=== PATIENT | female | born 1950 | race Caucasian/White ===

== ENCOUNTER 2016-12-19 21:56 | Inpatient (IN) | payer MEDICAID, OTHER ==
[~2016-12-19] VITALS: Ht 152.4 cm; Wt 49.8 kg
[2016-12-19] MEDS ORDERED: ATOR20TA38 PO (22:35)
[2016-12-19] MEDS ORDERED: ASPI-664 PO (22:35)
[2016-12-19] MEDS ORDERED: LOSA50TA6 PO (22:36)
[2016-12-19] MEDS ORDERED: GLIP5TAB13 PO (22:36)
[2016-12-19] MEDS ORDERED: METO5TAB58 PO (22:37)
[2016-12-19] MEDS ORDERED: HYDR-3670 PO (22:37)
[2016-12-19] MEDS ORDERED: ISON300T72 PO (22:38)
[2016-12-19] MEDS ORDERED: METO50TA16 PO (22:38)
[2016-12-19] MEDS ORDERED: LABE300T PO (22:40)
[2016-12-19] MEDS ORDERED: SEVE800T10 PO (22:40)
[2016-12-19] MEDS ORDERED: NICARDipine HCL 30 MG CAPSULE PO ONE (23:00)
--- NOTE | 2016-12-19 23:00 | ERA ---
ER Documentation Chief Complaint Date/Time DATE: 12/19/16 TIME: 22:57 Chief Complaint stopped dialysis after 2.5/4 hrs due to ALOC; a&o x1-2; no neuro defficits HPI This is a 66-year-old who is in dialysis prior to arrival and her dialysis was stopped early because level of consciousness. Patient was suddenly oriented 1 to but had no specific complaints of headache chest pain shortness of breath or abdominal pain. Patient was found to be hypertensive at 215/115 dialysis. Here the patient says she has no headache or any physical complaints but she is obviously confused and oriented 1. ROS All systems reviewed and are negative except as per history of present illness. Medications Home Meds Reported Medications Sevelamer Hcl* (Renagel*) 800 Mg Tablet, 800 MG PO WITH MEALS, TAB 12/19/16 Labetalol Hcl* (Labetalol Hcl*) 300 Mg Tablet, 300 MG PO BID, TAB 12/19/16 Isoniazid* (Isoniazid*) 300 Mg Tablet, 300 MG PO DAILY, TAB 12/19/16 Metoprolol Succinate* (Toprol XL*) 50 Mg Tab.er.24h, 50 MG PO DAILY, #30 TAB 12/19/16 Hydralazine Hcl* (Hydralazine Hcl*) 10 Mg Tablet, 10 MG PO Q8, #90 TAB 12/19/16 Metoclopramide* (Reglan*) 5 Mg Tablet, 5 MG PO AC MEALS Y for PRN, TAB 12/19/16 Glipizide* (Glipizide*) 5 Mg Tablet, 5 MG PO DAILY, TAB 12/19/16 Losartan Potassium* (Losartan Potassium*) 50 Mg Tablet, 50 MG PO DAILY, TAB 12/19/16 Atorvastatin Calcium* (Atorvastatin Calcium*) 20 Mg Tablet, 20 MG PO DAILY, #30 TAB 12/19/16 Aspirin* (Aspirin* EC) 81 Mg Tablet.dr, 81 MG PO DAILY, TAB 12/19/16 Allergies Allergies: Coded Allergies: Penicillins (Verified Allergy, Unknown, 12/19/16) PMhx/Soc History of Surgery: Yes (pauly cath right upper chest) Hx Cardiac Disorders: Yes (htn, dm) Hx Alcohol Use: No Hx Substance Use: No Hx Tobacco Use: No Smoking Status: Never smoker FmHx Family History: No coronary disease Physical Exam Vitals Vital Signs Date Time Temp Pulse Resp B/P Pulse Ox O2 Delivery O2 Flow Rate FiO2 12/20/16 00:26 81 16 128/51 98 Nasal Cannula 2.0 12/19/16 23:31 82 16 158/61 98 Nasal Cannula 2.0 12/19/16 22:47 Nasal Cannula 2 12/19/16 22:47 79 16 217/115 95 Room Air 2.0 Nasal Cannula 12/19/16 22:05 97.6 79 17 231/99 96 Physical Exam Const: Well-developed, well-nourished Head: Atraumatic, normocephalic Eyes: Normal Conjunctiva, PERRLA, EOMI, normal sclera, no nystagmus ENT: Normal External Ears, Nose and Mouth, moist mucus membranes. Neck: Full range of motion. No meningismus, no lymphadenopathy. Resp: Clear to auscultation bilaterally, no wheezing, rhonchi, rales Cardio: Regular rate and rhythm, no murmurs, S1 S2 present Abd: Soft, non tender x 4, non distended. Normal bowel sounds, no guarding or rebound, no pulsitile abdominal masses or bruits Skin: No petechiae or rashes, no ecchymosis , no maculopapular rash Back: No midline or flank tenderness Ext: No cyanosis, or edema, FROM x 4, normal inspection, neurovascularly intact x 4 Neur: Awake and alert, oriented 1 , STR 5/5 x 4, sensation intact x 4, no focal findings, cerebellum intact Psych: Normal Mood and Affect Result Diagram: 12/19/16222912/19/162229 Results 24 hrs Laboratory Tests Test 12/19/16 22:16 12/19/16 22:30 Bedside Glucose 118mg/dL White Blood Count 7.010^3/ul Red Blood Count 2.9810^6/ul Hemoglobin 9.1g/dl Hematocrit 26.0% Mean Corpuscular Volume 87.2fl Mean Corpuscular Hemoglobin 30.5pg Mean Corpuscular Hemoglobin Concent 35.0g/dl Red Cell Distribution Width 14.9% Platelet Count 28177^3/UL Mean Platelet Volume 9.9fl Neutrophils % 78.3% Lymphocytes % 12.4% Monocytes % 5.6% Eosinophils % 2.3% Basophils % 1.0% Nucleated Red Blood Cells % 0.0/100WBC Neutrophils # 5.510^3/ul Lymphocytes # 0.910^3/ul Monocytes # 0.410^3/ul Eosinophils # 0.210^3/ul Basophils # 0.110^3/ul Nucleated Red Blood Cells # 0.010^3/ul Prothrombin Time 13.5Sec Prothrombin Time Ratio 1.1 INR International Normalized Ratio 1.03 Activated Partial Thromboplast Time 38.7Sec Sodium Level 135mmol/L Potassium Level 3.9mmol/L Chloride Level 96mmol/L Carbon Dioxide Level 29mmol/L Anion Gap 14 Blood Urea Nitrogen 46mg/dl Creatinine 3.96mg/dl Glucose Level 113mg/dl Calcium Level 8.7mg/dl Total Bilirubin 0.2mg/dl Direct Bilirubin 0.00mg/dl Indirect Bilirubin 0.2mg/dl Aspartate Amino Transf (AST/SGOT) 20IU/L Alanine Aminotransferase (ALT/SGPT) 27IU/L Alkaline Phosphatase 121IU/L Troponin I 0.046ng/ml Total Protein 7.3g/dl Albumin 3.5g/dl Globulin 3.80g/dl Albumin/Globulin Ratio 0.92 Current Medications Medications (Trade) Dose Ordered Sig/Cookie Route PRN Reason Start Time Stop Time Status Last Admin Dose Admin Nicardipine HCl 30 mg 30 mg ONCE ONCE PO 12/19/16 23:00 12/19/16 23:01 DC 12/19/16 22:41 Azithromycin 250 ml @ 250 mls/hr ONCE ONCE IV 12/20/16 00:53 12/20/16 01:52 Ceftriaxone Sodium (Rocephin) 50 ml @ 100 mls/hr ONCE ONCE IVPB 12/20/16 00:53 12/20/16 01:22 Procedures/MDM EKG: Rate/Rhythm: Normal sinus rhythm, right bundle branch block and right ventricular hypertrophy QRS, ST, QT: NORMAL NC, QRS, QT] Impression: NORMAL EKG PROCEDURE: XR Chest. CLINICAL INDICATION: Cough. TECHNIQUE: Portable AP semi erect view of the chest was obtained. COMPARISON: None available. FINDINGS: The cardiomediastinal silhouette is mildly enlarged. Right lower lobe infiltrate cannot exclude pneumonia with a small parapneumonic effusion blunting the right costophrenic angle. The left lung is clear. There is no evidence of pulmonary vascular congestion. Right internal jugular Perma-Cath is present the distal tip in the right atrium. There is no evidence of pneumothorax. The osseous structures are intact with no evidence for acute abnormality. Calcification is visible within the aorta RPTAT:HJJR IMPRESSION: 1. Right lower lobe infiltrate unable to exclude pneumonia given the provided history with a suspected small right parapneumonic effusion. 2. Mild cardiac silhouette enlargement without certain evidence of congestive heart failure. 3. Right-sided Perma-Cath in satisfactory radiographic position. 4. Aortic atherosclerosis is present. Physician Areli Date Time Electronically viewed and signed by Physician Areli on 12/20/2016 00:47 / CC: LUANA MCKINNEY DO PROCEDURE: CT brain without contrast CLINICAL INDICATION: Weakness. Possible stroke TECHNIQUE: A CT of the brain was performed utilizing axial sections from the skull base through the vertex without contrast. Sagittal and coronal images were also reformatted. The exam CTDIvol = 40.02 mGy and DLP = 717.18 mGy-cm. COMPARISON: None available FINDINGS: No acute intracranial hemorrhage is identified. There is no mass effect or midline shift. No extra-axial fluid collection is seen. The ventricles and sulci are larger in size and configuration for the patient's provided age of 66 years consistent with advanced generalized atrophy. Diffuse low attenuation of the subcortical and periventricular white matter is nonspecific but likely the sequela of chronic small vessel ischemia. 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 Trimble-white differentiation is preserved with no findings to suggest an acute ischemic infarct. The fourth ventricle is midline and there is no density alteration within the dane or cerebellum. The osseous structures are unremarkable. The mastoid air cells and visualized paranasal sinuses are clear. Atherosclerotic calcification of the cavernous internal carotid arteries is present. RPTAT:HJJR IMPRESSION: 1. Advanced atrophy for the patient's provided age with extensive chronic small vessel ischemic white matter disease but no evidence of acute intracranial abnormality or findings to explain the patient's provided history. 2. 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 3. Atherosclerotic calcification of the cavernous internal carotid arteries. Lucio Ashford Physician Date Time Electronically viewed and signed by Lucio Ashford Physician on 12/20/2016 00:16 JR/ CC: LUANA MCKINNEY DO The patient was reevaluated and she is much more coherent now. Blood pressure is 135/106 now. Patient says that she remembers being in dialysis this is something happened to the machine and it broke. She does have a right lower lobe pneumonia question she says she has been coughing. We will admit her for IV antibiotic therapy and observation due to altered mental status. Altered mental status is probably due to hypertensive encephalopathy which is now resolved. Departure Diagnosis: Primary Impression: Hypertensive encephalopathy Additional Impression: Right lower lobe pneumonia Qualified Code: J18.1 - Pneumonia of right lower lobe due to infectious organism Condition: Stable LUANA MCKINNEY DO December 19, 2016 23:00
[2016-12-19 23:06] LABS: ADD SCAN DIFF NO; BASOPHIL # 0.1 10^3/ul (0.0-0.1); EOSINOPHILS # 0.2 10^3/ul (0.0-0.5); EOSINOPHILS % 2.3 % (0.0-7.0); HEMOGLOBIN 9.1 g/dl (12.0-16.0); LYMPHOCYTES # 0.9 10^3/ul (0.8-2.9); LYMPHOCYTES % 12.4 % (15.0-51.0); MEAN CORPUSCULAR HEMOGLOBIN 30.5 pg (29.0-33.0); MEAN CORPUSCULAR VOLUME 87.2 fl (82.0-101.0); MEAN PLATELET VOLUME 9.9 fl (7.4-10.4); MONOCYTE # 0.4 10^3/ul (0.3-0.9); MONOCYTES % 5.6 % (0.0-11.0); NEUTROPHIL # 5.5 10^3/ul (1.6-7.5); NEUTROPHILS % 78.3 % (39.0-77.0); PLATELET COUNT 282 10^3/UL (140-415); RED BLOOD COUNT 2.98 10^6/ul (4.20-5.40); RED CELL DISTRIBUTION WIDTH 14.9 % (11.5-14.5)
[2016-12-19 23:27] LABS: ALBUMIN 3.5 g/dl (3.3-4.9); ALBUMIN/GLOBULIN RATIO 0.92; BILIRUBIN,INDIRECT 0.2 mg/dl (0-1.1); BILIRUBIN,TOTAL 0.2 mg/dl (0.2-1.3); CALCIUM 8.7 mg/dl (8.4-10.2); CREATININE 3.96 mg/dl (0.44-1.00); POTASSIUM 3.9 mmol/L (3.5-5.1); TOTAL PROTEIN 7.3 g/dl (6.1-8.1)
[2016-12-19 23:42] LABS: TROPONIN-I 0.046 ng/ml (0.00-0.12)
[2016-12-19 23:52] LABS: INR 1.03; PROTIME 13.5 Sec (12.2-14.2); PT RATIO 1.1
[2016-12-19 23:53] LABS: PARTIAL THROMBOPLASTIN TIME 38.7 Sec (25.0-35.0)
[2016-12-20] VITALS (15 sets, daily range): BP systolic 144–191; BP diastolic 64–87; PULSE 64–74; RESP 16–18; Ht 152.4 cm; Wt 49.8 kg
--- NOTE | 2016-12-20 00:17 | RADRPT ---
PROCEDURE: CT brain without contrast CLINICAL INDICATION: Weakness. Possible stroke TECHNIQUE: A CT of the brain was performed utilizing axial sections from the skull base through th e vertex without contrast. Sagittal and coronal images were also reformatted. The exam CTDIvol = 40. 02 mGy and DLP = 717.18 mGy-cm. COMPARISON: None available FINDINGS: No acute intracranial hemorrhage is identified. There is no mass effect or midline shift. No extra -axial fluid collection is seen. The ventricles and sulci are larger in size and configuration for the patient's provided age of 66 years consistent with advanced generalized atrophy. Diffuse low at tenuation of the subcortical and periventricular white matter is nonspecific but likely the sequela of chronic small vessel ischemia. 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 Trimble-white differentiation is preserve d with no findings to suggest an acute ischemic infarct. The fourth ventricle is midline and there is no density alteration within the dane or cerebellum. The osseous structures are unremarkable. The mastoid air cells and visualized paranasal sinuses are clear. Atherosclerotic calcification of the cavernous internal carotid arteries is present. RPTAT:HJJR IMPRESSION: 1. Advanced atrophy for the patient's provided age with extensive chronic small vessel ischemic whit e matter disease but no evidence of acute intracranial abnormality or findings to explain the patien t's provided history. 2. 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 3. Atherosclerotic calcification of the cavernous internal carotid arteries. Physician Areli Date Time Electronically viewed and signed by Physician Areli on 12/20/2016 00:16 /
--- NOTE | 2016-12-20 00:47 | RADRPT ---
PROCEDURE: XR Chest. CLINICAL INDICATION: Cough. TECHNIQUE: Portable AP semi erect view of the chest was obtained. COMPARISON: None available. FINDINGS: The cardiomediastinal silhouette is mildly enlarged. Right lower lobe infiltrate cannot exclude pne umonia with a small parapneumonic effusion blunting the right costophrenic angle. The left lung is clear. There is no evidence of pulmonary vascular congestion. Right internal jugular Perma-Cath is present the distal tip in the right atrium. There is no evidence of pneumothorax. The osseous str uctures are intact with no evidence for acute abnormality. Calcification is visible within the aorta RPTAT:HJJR IMPRESSION: 1. Right lower lobe infiltrate unable to exclude pneumonia given the provided history with a suspec alaina small right parapneumonic effusion. 2. Mild cardiac silhouette enlargement without certain evidence of congestive heart failure. 3. Right-sided Perma-Cath in satisfactory radiographic position. 4. Aortic atherosclerosis is present. Physician Areli Date Time Electronically viewed and signed by Physician Areli on 12/20/2016 00:47 /
[2016-12-20] MEDS ORDERED: AZITHROMYCIN 500MG/NS (PMX) 250 ML IV ONE (00:53)
[2016-12-20] MEDS ORDERED: CEFTRIAXONE 1 GM/50 ML (PMX) 50 ML IVPB ONE (00:53)
[2016-12-20] MEDS ORDERED: ACETAMINOPHEN 325 MG TAB PO PRN (01:30)
[2016-12-20] MEDS ORDERED: ONDANSETRON 4 MG INJ IV PRN (01:30)
[2016-12-20] MEDS ORDERED: GLUCAGON 1 MG INJ IM PRN (05:00)
[2016-12-20] MEDS ORDERED: GLUCOSE GEL 15 GRAM TUBE PO PRN ×2 (05:00)
[2016-12-20] MEDS ORDERED: DEXTROSE 50% 50 ML SYRINGE IV PRN ×2 (05:00)
[2016-12-20] MEDS ORDERED: GLUCOSE GEL 15 GRAM TUBE BUCCAL PRN (05:00)
[2016-12-20 07:54] LABS: ADD SCAN DIFF NO
[2016-12-20] MEDS: INSULIN ASPART [NOVOLOG] 3 ML PEN SC SCH ×4 (08:00→21:00)
[2016-12-20 08:07] LABS: BASOPHIL # 0.1 10^3/ul (0.0-0.1); BASOPHILS % 1.2 % (0.0-2.0); EOSINOPHILS # 0.2 10^3/ul (0.0-0.5); EOSINOPHILS % 3.7 % (0.0-7.0); HEMATOCRIT 24.4 % (37.0-47.0); HEMOGLOBIN 8.3 g/dl (12.0-16.0); LYMPHOCYTES # 1.2 10^3/ul (0.8-2.9); MEAN CORPUSCULAR VOLUME 88.1 fl (82.0-101.0); MEAN PLATELET VOLUME 10.3 fl (7.4-10.4); MONOCYTE # 0.7 10^3/ul (0.3-0.9); MONOCYTES % 10.6 % (0.0-11.0); NEUTROPHIL # 4.2 10^3/ul (1.6-7.5); NEUTROPHILS % 65.3 % (39.0-77.0); PLATELET COUNT 248 10^3/UL (140-415); RED BLOOD COUNT 2.77 10^6/ul (4.20-5.40); RED CELL DISTRIBUTION WIDTH 14.9 % (11.5-14.5); WHITE BLOOD COUNT 6.5 10^3/ul (4.8-10.8)
[2016-12-20] MEDS: ISONIAZID 300 MG TAB PO SCH (08:13)
[2016-12-20] MEDS: SEVELAMER 800 MG TAB PO SCH ×3 (08:13→17:15)
[2016-12-20] MEDS: METOPROLOL (XL) 50 MG TAB PO SCH (08:13)
[2016-12-20] MEDS: LOSARTAN 50 MG TAB PO SCH (08:14)
[2016-12-20] MEDS: ASPIRIN (EC) 81 MG TAB PO SCH (08:14)
[2016-12-20] MEDS: HEPARIN 5,000 UNIT/0.5 ML VIAL SC SCH ×2 (08:21→21:23)
[2016-12-20] MEDS: INSULIN GLARGINE [LANtus] 3 ML PEN SC SCH (08:21)
[2016-12-20 08:30] LABS: CALCIUM 7.9 mg/dl (8.4-10.2); CREATININE 4.66 mg/dl (0.44-1.00); MAGNESIUM 2.1 mg/dl (1.7-2.5); PHOSPHORUS 5.9 mg/dl (2.5-4.9); POTASSIUM 4.7 mmol/L (3.5-5.1)
[2016-12-20 08:48] LABS: THYROID STIMULATING HORMONE 9.34 MIU/L (0.465-4.680)
--- NOTE | 2016-12-20 10:03 | HP ---
DATE OF ADMISSION: 12/20/2016 TIME SEEN: 4 a.m. CHIEF COMPLAINT: Altered mentation. HISTORY OF PRESENT ILLNESS: The patient is a 66-year-old female with a history of hypertension, bree rosas, end-stage renal disease, on dialysis, who was brought to the ER from the dialysis center afte r acute episodes of altered mentation. The patient does not have any complaints. Reportedly during dialysis she became alert and oriented x1 and seemed very confused. At that time her blood pressur e was around 230/100. Again, the patient did not have a complaint at that time. Currently, I spoke to her through a nurse billboard poster helper, and she knows where she is. She knows her date of birther and her name, but she thought the year was 1971 and she thought the reason why she is in the hospital wa s because of heartburn. She does, however, look comfortable, in no acute distress. When the patient presented to the ER her blood pressure was still elevated at 231/99, heart rate 79, respiratory rate 17, temperature 97.6, oxygen saturation 96% on room air. 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 Also exten sive small vessel disease was noted. Chest x-ray shows a right lower lobe infiltrate, unable to exc lude pneumonia. Also noted was cardiac silhouette enlargement, without certain evidence of CHF. La boratory values shows hemoglobin 9.1, BUN 46, creatinine 3.96. Otherwise, the rest of CBC and CMP a re within acceptable range. REVIEW OF SYSTEMS: A 12-point review of systems was performed and negative except as mentioned in th e HPI. PAST MEDICAL HISTORY: As per HPI. PAST SURGICAL HISTORY: Right upper chest PermCath placement. SOCIAL HISTORY: No history of tobacco, alcohol or illicit drug use. ALLERGIES: PENICILLIN. HOME MEDICATIONS: 1. Isoniazid. 2. Lipitor. 3. Hydralazine. 4. Labetalol. 5. Losartan. 6. Toprol XL. 7. Aspirin 8. Renagel. 9. Reglan. 10. Glipizide. PHYSICAL EXAMINATION: VITAL SIGNS: Currently blood pressure 143/56, heart rate 72, respiratory rate 16, temperature earli er was 97.6, oxygen saturation 97% on 2 liters. GENERAL: The patient somehow sitting up on the bed, in no acute distress. She is Hungarian-speaking only, but for the most part is answering questions appropriately through an billboard poster helper. She is not fully oriented. HEENT: No obvious head deformity. Pupils are reactive to light. Extraocular muscles are intact. CARDIOVASCULAR: Regular rate and rhythm, with no extra sounds. LUNGS: Clear. There is a right-sided PermCath in place, which is partially covered. ABDOMEN: Soft, nontender, nondistended. Positive bowel sounds. EXTREMITIES: No edema. NEUROLOGIC: No focal deficits. LABORATORY DATA: Pertinent positives as mentioned in the HPI. IMAGING: Chest x-ray and brain CT results as mentioned in the HPI. IMPRESSION: 1. Acute mild encephalopathy, likely the result of a hypertensive crisis. 2. Hypertensive emergency, blood pressure better controlled now. 3. End-stage renal disease, on dialysis. 4. History of diabetes. PLAN: The patient's altered mentation, which actually occurred while the patient was getting dialys is, could be a momentary drop in the blood pressure, but at the same time her blood pressure at that time was severely elevated, so it could be a combination of the two, but most likely it is secondar y to hypertensive crisis. We will need to talk to a family member to fully understand what the lisy ent's baseline mentation is, but for now she is not oriented to time. A head CT, as mentioned in th e HPI, shows extensive small vessel disease and findings suggestive of cysticercosis, otherwise no a cute infarct or hemorrhage. Will obtain MRI of the brain as needed. Will also treat her pneumonia, which could also have been a contributing factor, even though I would not expect it to acutely caus e altered mentation. Will attempt to send a respiratory culture. Will notify nephrology for her co ntinued dialysis need. Will continue to adjust her blood pressure for better control. Further open workup and management as per clinical course. Dictated By: LESLIE CUENCA/FLETCHER Conf#: [id number] DID#: [id number]
--- NOTE | 2016-12-20 10:51 | CONS ---
DATE OF ADMISSION: 12/20/2016 DATE OF CONSULTATION: 12/20/2016 TYPE OF CONSULTATION: Nephrology. REASON FOR CONSULTATION: End-stage renal disease. PHYSICIAN REQUESTING CONSULT: Dr. Enriquez. HISTORY OF PRESENT ILLNESS: This is a 66-year-old female with past medical history of end-stage [place] disease on hemodialysis Saturday, Saturday and Saturday. The patient's primary croze cutter is Dr. Shoemaker. A history of hypertension, anemia, mineral bone disorder, history of diabetes, who was bro ught to [facility] due to altered mental status. The patient apparently was at [facility], but dialysis was stopped approximately after 2.5 hours due to altered mental stat us. The patient, as a result, was brought into the emergency room. Upon arrival, the patient had a CT scan of the brain which showed findings of advanced atrophy, but no acute intracranial abnormali ty. The patient also had a chest x-ray which showed findings of possible pneumonia. The patient wa s placed on antibiotic therapy and admitted to [facility] telemetry for evaluation. Upon my evaluation of the patient at this time, she is currently stable. Denies any fevers, chills, nausea, vomiting. No shortness of breath. PAST MEDICAL HISTORY: As stated above, history of end-stage renal disease, history of hypertension, history of anemia, history of diabetes, history of mineral bone disorder. ALLERGIES: THE PATIENT IS ALLERGIC TO PENICILLIN. PAST SURGICAL HISTORY: Status post Gabe catheter placement. FAMILY HISTORY: Noncontributory. SOCIAL HISTORY: Does not drink, smoke or do drugs. MEDICATIONS: The patient's medications have been reviewed. REVIEW OF SYSTEMS: A 14-point review of systems was conducted. Pertinent positives stated in HPI, otherwise negative. PHYSICAL EXAMINATION: VITAL SIGNS: Blood pressure is 190/87, respiration 18, pulse 65, temperature 97.6. HEENT: Head is normocephalic. Pupils are reactive to light. NECK: Supple. HEART: Regular rate. CHEST: The patient has positive Perm-A-Cath. EXTREMITIES: Negative for clubbing, cyanosis, no edema. DERMATOLOGIC: No rashes. MUSCULOSKELETAL: No joint effusions. NEUROLOGIC: No change in exam. MEDICATIONS: The patient's medications have been reviewed. LABORATORY DATA: Shows a sodium 135, potassium 4.7, chloride 99, BUN 52, creatinine 4.66 and phosph orus 5.9. White count 6.5, hemoglobin 8.3, hematocrit 24.4, platelet count 248. IMAGING STUDIES: As stated in HPI. Chest x-ray shows right lower lobe pneumonia. ASSESSMENT AND PLAN: This is a 66-year-old female who presents with: 1. End-stage renal disease. The patient on dialysis Saturday, Saturday, Saturday, with access by Perm Cath. Last hemodialysis was Saturday. Plan for dialysis tomorrow. Will dialyze for 3 hours, 3 K bath, calcium 2.5, ultrafiltrate as tolerated. 2. Anemia of chronic disease. Will continue to monitor hemoglobin and hematocrit levels. Will giv e Epogen with hemodialysis. 3. Mineral bone disorder. Will continue to monitor calcium, phosphorus levels. Continue phosphoru s binders. 4. Hypertensive urgency. The patient is status post blood pressure medications and blood pressures have improved. Will continue to monitor. Will continue ultrafiltration dialysis. Monitor closely. 5. Pneumonia, sepsis. Continue current antibiotic regimen. 6. Acute encephalopathy. The etiology may have been toxic metabolic. The patient's CT scan showed no acute findings. Continue to monitor. 7. Deep venous thrombosis prophylaxis. Continue proton pump inhibitor, heparin. 8. Diabetes. Continue Accu-Cheks, insulin sliding scale. Thank you, Dr. Enriquez, for this interesting consultation. It will be a pleasure to follow patient with you throughout the hospital course. Continue Hypertension elementary stated that hypertensive urgency. The patient is status post blood pressure medications and blood pressures have improved. Dictated By: WILLOW IVERSON/FLETCHER Conf#: [id number] DID#: [id number]
[2016-12-20] MEDS: hydrALAzine 20 MG INJ IV PRN ×3 (12:03→21:25)
[2016-12-20] MEDS: ACETAMINOPHEN 325 MG TAB PO PRN ×2 (13:01→21:18)
[2016-12-20] MEDS: ONDANSETRON 4 MG INJ IV PRN (13:02)
[2016-12-20] MEDS ORDERED: LABETALOL HCL 20MG INJ IV PRN (17:00)
[2016-12-20] MEDS: ATORVASTATIN 20 MG TAB PO SCH (21:17)
[2016-12-21] VITALS (20 sets, daily range): BP systolic 125–235; BP diastolic 65–98; PULSE 64–76; RESP 16–20
[2016-12-21] MEDS: ACCU-CHEK XX SCH (02:00)
[2016-12-21] MEDS: INSULIN ASPART [NOVOLOG] 3 ML PEN SC SCH ×4 (07:33→21:00)
[2016-12-21 07:42] LABS: ADD SCAN DIFF NO
[2016-12-21 08:03] LABS: BASOPHIL # 0.1 10^3/ul (0.0-0.1); BASOPHILS % 0.6 % (0.0-2.0); EOSINOPHILS # 0.1 10^3/ul (0.0-0.5); EOSINOPHILS % 0.9 % (0.0-7.0); HEMATOCRIT 26.2 % (37.0-47.0); HEMOGLOBIN 8.7 g/dl (12.0-16.0); LYMPHOCYTES # 0.9 10^3/ul (0.8-2.9); LYMPHOCYTES % 11.3 % (15.0-51.0); MEAN CORPUSCULAR HEMOGLOBIN 30.3 pg (29.0-33.0); MEAN CORPUSCULAR HGB CONC 33.2 g/dl (32.0-37.0); MEAN CORPUSCULAR VOLUME 91.3 fl (82.0-101.0); MEAN PLATELET VOLUME 10.2 fl (7.4-10.4); MONOCYTE # 0.5 10^3/ul (0.3-0.9); MONOCYTES % 5.8 % (0.0-11.0); NEUTROPHIL # 6.5 10^3/ul (1.6-7.5); PLATELET COUNT 281 10^3/UL (140-415); RED BLOOD COUNT 2.87 10^6/ul (4.20-5.40); RED CELL DISTRIBUTION WIDTH 15.2 % (11.5-14.5)
[2016-12-21 08:09] LABS: CREATININE 6.05 mg/dl (0.44-1.00); MAGNESIUM 2.1 mg/dl (1.7-2.5); PHOSPHORUS 7.8 mg/dl (2.5-4.9)
[2016-12-21] MEDS: SEVELAMER 800 MG TAB PO SCH ×3 (08:23→17:12)
[2016-12-21] MEDS: METOPROLOL (XL) 50 MG TAB PO SCH (08:24)
[2016-12-21] MEDS: ASPIRIN (EC) 81 MG TAB PO SCH (08:24)
[2016-12-21] MEDS: LOSARTAN 50 MG TAB PO SCH ×2 (08:24→21:16)
[2016-12-21] MEDS: ISONIAZID 300 MG TAB PO SCH (08:24)
[2016-12-21] MEDS: HEPARIN 5,000 UNIT/0.5 ML VIAL SC SCH ×2 (08:26→21:18)
[2016-12-21 08:33] LABS: POTASSIUM 6.1 mmol/L (3.5-5.1)
[2016-12-21] MEDS ORDERED: EPOETIN 10000 UNITS/1 ML INJ (ESRD) SC SCH (09:00)
--- NOTE | 2016-12-21 09:11 | PN ---
DATE: 12/21/2016 SUBJECTIVE: The patient is stable, no acute events overnight. The patient is currently on dialysis . No other events noted. OBJECTIVE: VITAL SIGNS: Blood pressure 200/82, respirations 18, pulse 76, temperature 98.4. HEENT: Head is normocephalic. NECK: Supple. HEART: Regular rate. LUNGS: Show diminished breath sounds at the bases. ABDOMEN: Soft, nontender to palpation. No rebound or guarding. EXTREMITIES: Negative for clubbing, cyanosis. No edema. DERMATOLOGIC: No rashes. MUSCULOSKELETAL: No joint effusions. NEUROLOGIC: No change in exam. MEDICATIONS: The patient's medications have been reviewed. LABORATORY DATA: Shows sodium 134, potassium 6.1, BUN 67, creatinine 6.05, phosphorus 7.8, calcium is 8.0. White count 8.0, hemoglobin 9.7, hematocrit 26.2, platelet count is 281. ASSESSMENT AND PLAN: 1. End-stage renal disease. The patient is scheduled for dialysis today, will dialyze 3.5 hours on a 2K bath, calcium 2.5. We will ultrafiltrate as tolerated. 2. Hyperkalemia secondary to end-stage renal disease. The patient will be placed on [address] will [address] patient on renal diet and monitor. 3. Anemia of chronic disease. Continue to monitor hemoglobin and hematocrit levels. We will give Epogen as needed. 4. Mineral bone disorder. Continue to monitor calcium and phosphorus levels. Continue phosphate b inders. 5. Hypertensive urgency. Etiology in part due to increased intravascular volume. Continue ultrafi ltration dialysis. Continue blood pressure regimen. 6. Sepsis secondary to pneumonia. Continue current antibiotic regimen. 7. Acute encephalopathy. Etiology is toxic metabolic. Mental status improving. Continue to monit or. 8. Diabetes. Continue Accu-Cheks and insulin sliding scale. 9. Gastrointestinal and deep venous thrombosis prophylaxis. Continue proton pump inhibitor and hep floyd. Dictated By: WILLOW IVERSON/FLETCHER Conf#: [id number] DID#: [id number]
[2016-12-21] MEDS: INSULIN GLARGINE [LANtus] 3 ML PEN SC SCH (11:43)
--- NOTE | 2016-12-21 12:08 | CONS ---
DATE OF ADMISSION: 12/20/2016 DATE OF CONSULTATION: 12/21/2016 NEUROLOGICAL CONSULTATION Thank you, Dr. Kyle, for your kind referral for evaluation of encephalopathy. HISTORY OF PRESENT ILLNESS: The patient is a 66-year-old lady with past medical history of hyperten geo, diabetes, end-stage renal disease, on hemodialysis, was brought from dialysis center after acu te episode of altered mentation. At that time, blood pressure was around 230/100. She seemed to be doing better with improvement of mental status over time. She had CAT scan of the head, atrophy, white matter disease, no other abnormalities. Chest x-ray: Right lower lobe infiltr ates, unable to exclude pneumonia, per radiology chest x-ray report. Labs: Anemia, 9.1 hemoglobin, 26.1 hematocrit on admission, normal WBCs, neutrophil count 81% today. Normal PT and PTT 38.7 on a dmission, BUN 46, creatinine 3.926. Normal comprehensive metabolic panel otherwise, elevated TSH. Today's potassium 6.1, sodium 134, chloride 96, bicarbonate 26, BUN 67, creatinine 6.05. Blood culture shows gram-positive cocci. CURRENT MEDICATIONS: 1. Epogen. 2. Lipitor. 3. Labetalol. 4. Aspirin 81. 5. Isoniazid 6. Cozaar. 7. Metoprolol. 8. Heparin. 9. Renagel. 10. Insulin. 11. Alprazolam. ALLERGIES: SHE IS ALLERGIC TO PENICILLIN. SOCIAL HISTORY: No alcohol, tobacco, drug use. FAMILY HISTORY: Noncontributory. REVIEW OF SYSTEMS: All pertinent positives included in the above history of present illness. Lennie nt has complained of occipital headache, states that it has been a longstanding problem. PHYSICAL EXAMINATION: VITAL SIGNS: Temperature 98.4, 76 pulse, 18 respirations, 200/82 blood pressure. GENERAL: Not in acute distress, lying in bed. NECK: Supple. No meningeal signs. LUNGS: Clear to auscultation bilaterally. CARDIAC: Normal cardiac rhythm and sounds. ABDOMEN: Soft. EXTREMITIES: No cyanosis, clubbing, or edema. There is a right chest PermCath in place. NEUROLOGIC: She is awake, alert, and oriented x2. She knows she is in the hospital, but could not state which one. Fluent speech. Present response to visual threat bilaterally. Pupils reactive fr om 3 to 2 mm bilaterally, but sluggishly. Extraocular movements intact without nystagmus. Symmetri dayana face. Preserved facial strength and sensation. Tongue is in midline. Palate elevates symmetri beto. Motor strength examination seems to be preserved in all extremities. Normal bulk, tone, and strength. Sensory examination shows diminution of perception of pinprick and vibration of bilatera l feet. Deep tendon reflexes 2+ upper extremities, 1+ knee jerks, absent ankle jerks. Downgoing to es bilaterally. Coordination preserved on [id number] testing. No dysmetria or tremor. Gait is not assessed. IMPRESSION: Encephalopathy, likely toxic metabolic etiology, plus/minus related to hypertension. C ontinue current treatment. For evaluation of encephalopathy, will obtain EEG. No other recommendat ions. Thank you for this interesting consultation. Dictated By: YIN LOPEZ/FLETCHER Conf#: [id number] DID#: [id number]
--- NOTE | 2016-12-21 15:58 | PN ---
Date/Time of Note Date/Time of Note DATE: 12/21/16 TIME: 15:57 Assessment/Plan VTE Prophylaxis VTE Prophylaxis Intervention: heparin Lines/Catheters IV [facility] Saline Lock Urinary Cath still in place: No Assessment/Plan Chief Complaint/Hosp Course 1. Acute metabolic encephalopathy secondary to bacteremia from alpha hemolytic strep ID consultation Initiate vancomycin Neurology consultation appreciated Follow-up on EEG 2. Hypertensive emergency-still elevated Increase Cozaar to 50 twice daily and start Norvasc 5 mg in a.m. Hydralazine as needed 3. End-stage renal disease, on dialysis Nephrology consultation appreciated ID to evaluate for possible line sepsis 4. History of diabetes A1c normal at 5.7 Continue Lantus and NovoLog sliding scale Prophylaxis: Heparin Problems: Subjective 24 Hr Interval Summary Constitutional: disoriented Exam/Review of Systems Vital Signs Vitals Vital Signs Date Time Temp Pulse Resp B/P Pulse Ox O2 Delivery O2 Flow Rate FiO2 12/21/16 15:23 98.4 65 20 96 12/21/16 12:06 Nasal Cannula 2.0 Intake and Output 12/20/16 12/20/16 12/21/16 15:00 23:00 07:00 Intake Total 350 ml 200 ml Balance 350 ml 200 ml Exam Psych: confusion Respiratory: clear to auscultation Cardiovascular: regular rate and rhythm Gastrointestinal: soft, No distended Musculoskeletal: nl extremities to inspection Results Result Diagram: 12/21/16 0640 12/21/16 0640 Results 24 hrs Laboratory Tests Test 12/20/16 17:13 12/20/16 21:02 12/21/16 06:40 12/21/16 07:28 Bedside Glucose 111 120 99 White Blood Count 8.0 # Red Blood Count 2.87 L Hemoglobin 8.7 L Hematocrit 26.2 L Mean Corpuscular Volume 91.3 Mean Corpuscular Hemoglobin 30.3 Mean Corpuscular Hemoglobin Concent 33.2 Red Cell Distribution Width 15.2 H Platelet Count 281 Mean Platelet Volume 10.2 Neutrophils % 81.0 H Lymphocytes % 11.3 L Monocytes % 5.8 Eosinophils % 0.9 Basophils % 0.6 Nucleated Red Blood Cells % 0.0 Neutrophils # 6.5 Lymphocytes # 0.9 Monocytes # 0.5 Eosinophils # 0.1 Basophils # 0.1 Nucleated Red Blood Cells # 0.0 Sodium Level 134 L Potassium Level 6.1 *H Chloride Level 96 L Carbon Dioxide Level 26 Anion Gap 18 H Blood Urea Nitrogen 67 H Creatinine 6.05 H Glucose Level 92 Calcium Level 8.0 L Phosphorus Level 7.8 H Magnesium Level 2.1 Test 12/21/16 11:34 Bedside Glucose 106 Medications Medications Current Medications Aspirin (Halfprin) 81 mg DAILY PO Last administered on 12/21/16 08:24; Admin Dose 81 MG; Start 12/20/16 at 09:00 Atorvastatin Calcium (Lipitor) 20 mg DAILY@21 PO Last administered on 21:17; Admin Dose 20 MG; Start 12/20/16 at 21:00 Hydralazine HCl (Apresoline) 10 mg Q8 PO Last administered on 12/21/16 15:36; Admin Dose 10 MG; Start 12/20/16 at 06:00 Isoniazid (Isoniazid) 300 mg DAILY PO Last administered on 12/21/16 08:24; Admin Dose 300 MG; Start 12/20/16 at 09:00 Losartan Potassium (Cozaar) 50 mg DAILY PO Last administered on 12/21/16 08:24 ; Admin Dose 50 MG; Start 12/20/16 at 09:00 Metoprolol Succinate (Toprol Xl) 50 mg DAILY PO Last administered on 12/21/16 08:24; Admin Dose 50 MG; Start 12/20/16 at 09:00 Ondansetron HCl (Zofran Inj) 4 mg Q6H PRN IV NAUSEA AND/OR VOMITING Last administered on 12/20/16 13:02; Admin Dose 4 MG; Start 12/20/16 at 05:00 Acetaminophen (Tylenol Tab) 650 mg Q6H PRN PO PAIN AND OR ELEVATED TEMP Last administered on 12/20/16 21:18; Admin Dose 650 MG; Start 12/20/16 at 05:00 Heparin Sodium (Porcine) (Heparin (5000 Units/0.5 ml)) 5,000 unit BID SC Last administered on 12/21/16 08:26; Admin Dose 5,000 UNIT; Start 12/20/16 at 09:00 Insulin Glargine (Lantus) 10 unit DAILY@08 SC Last administered on 12/21/16 11 :43; Admin Dose 10 UNIT; Start 12/20/16 at 08:00 Diagnostic Test (Pha) (Accu-Chek) 1 ea 02 XX ; Start 12/21/16 at 02:00 Hydralazine HCl (Apresoline) 10 mg Q4H PRN IV ELEVATED BLOOD PRESSURE Last administered on 12/20/16 21:25; Admin Dose 10 MG; Start 12/20/16 at 05:00 Miscellaneous Information 1 ea NOTE XX ; Start 12/20/16 at 05:00 Glucose (Glutose) 15 gm Q15M PRN PO DECREASED GLUCOSE; Start 12/20/16 at 05:00 Glucose (Glutose) 22.5 gm Q15M PRN PO DECREASED GLUCOSE; Start 12/20/16 at 05: 00 Dextrose (D50w Syringe) 25 ml Q15M PRN IV DECREASED GLUCOSE; Start 12/20/16 at 05:00 Dextrose (D50w Syringe) 50 ml Q15M PRN IV DECREASED GLUCOSE; Start 12/20/16 at 05:00 Glucagon (Glucagen) 1 mg Q15M PRN IM DECREASED GLUCOSE; Start 12/20/16 at 05:00 Glucose (Glutose) 15 gm Q15M PRN BUCCAL DECREASED GLUCOSE; Start 12/20/16 at 05 :00 Labetalol HCl (Labetalol) 20 mg Q4H PRN IV SBP > 170 Last administered on 17:15; Admin Dose 20 MG; Start 12/20/16 at 17:00 DANYEL HOROWITZ December 21, 2016 15:58
[2016-12-21] MEDS ORDERED: VANCOMYCIN IV PER PHARMACY XX SCH (16:30)
[2016-12-21] MEDS ORDERED: VANCOMYCIN 1 GM in NS 250 ML IVPB SCH (16:50)
[2016-12-21] MEDS: AMLODIPINE 5 MG TAB PO SCH (17:12)
--- NOTE | 2016-12-21 20:46 | CONS ---
DATE OF ADMISSION: 12/20/2016 DATE OF CONSULTATION: 12/21/2016 TYPE OF CONSULTATION: Infectious Disease. REASON FOR CONSULTATION: Antibiotic management. HISTORY OF PRESENT ILLNESS: Gali Perea is a 66-year-old female, who comes in with alte red mental status. Her problems include: 1. Hypertension. 2. Adult-onset diabetes mellitus. 3. End-stage renal disease on hemodialysis. 4. Right upper chest Permacath placement. 5. ALLERGY TO PENICILLIN. 6. Prophylaxis for tuberculosis with isoniazid. Acutely, the patient comes in with altered mentation, and the confusion began at the time of dialysi s. Her blood pressure was around 230/100. In the emergency room, her blood pressure was 231/99. 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 She also has extensive small-vessel disease. Chest x-ray showed right lower lobe infilt rate, cardiac silhouette enlargement as well. Her laboratory values showed white cell count on admi ssion of 7000; currently 8000, with hemoglobin and hematocrit of 8.7 and 26.2, platelet count 281,00 0. BUN and creatinine was 67/6.05, potassium 6.1. Microbiology: Blood cultures grew out alpha hem olytic strep. The patient is currently on vancomycin. She is also followed by Dr. Nguyen in renal consultation. PAST MEDICAL HISTORY: Operation: Right upper chest Permacath. FAMILY HISTORY: Noncontributory. SOCIAL HISTORY: She does not smoke, drink, or abuse drugs. ALLERGIES: PENICILLIN. MEDICATIONS: Per chart. REVIEW OF SYSTEMS: Noncontributory. PHYSICAL EXAMINATION: GENERAL: The patient is a well-developed, well-nourished female, who is confused, disoriented, in n o acute distress. VITAL SIGNS: Currently are stable. She is afebrile. SKIN: Without generalized rash. HEENT: Within normal limits. NECK: Supple. LYMPH NODES: Nonpalpable. CHEST: Decreased breath sounds at the bases. THORAX: Right-sided Permacath in place. HEART: Without murmur or gallop. ABDOMEN: Soft, nontender, without organosplenomegaly or masses. EXTREMITIES: Without cyanosis, clubbing, or edema. RECTAL AND GENITAL: Deferred. NEUROLOGIC EVALUATION: No focal neurological abnormalities. IMPRESSION AND PLAN: The patient comes in with sepsis secondary to alpha hemolytic strep. We have to worry that we are dealing with a catheter-associated bacteremia; however, she also has a right lo wer lobe infiltrate, which also could be the cause of this problem. We should repeat blood cultures . I will dictate my findings to the hospitalist, Dr. Nguyen and Dr. Hastings, who is the neur ologist on the case. Dictated By: MEGA GILBERT MD, JD/FLETCHER Conf#: [id number] DID#: [id number]
[2016-12-21] MEDS: ATORVASTATIN 20 MG TAB PO SCH (21:15)
[2016-12-21] MEDS: hydrALAzine 20 MG INJ IV PRN (23:46)
[2016-12-22] VITALS (23 sets, daily range): BP systolic 139–209; BP diastolic 63–89; PULSE 63–89; RESP 14–19
[2016-12-22] MEDS: ACCU-CHEK XX SCH (02:00)
[2016-12-22 07:45] LABS: ADD SCAN DIFF NO
[2016-12-22 07:54] LABS: BASOPHIL # 0.1 10^3/ul (0.0-0.1); BASOPHILS % 1.4 % (0.0-2.0); EOSINOPHILS # 0.2 10^3/ul (0.0-0.5); EOSINOPHILS % 2.4 % (0.0-7.0); HEMATOCRIT 28.6 % (37.0-47.0); HEMOGLOBIN 9.3 g/dl (12.0-16.0); LYMPHOCYTES # 1.5 10^3/ul (0.8-2.9); LYMPHOCYTES % 21.6 % (15.0-51.0); MEAN CORPUSCULAR HEMOGLOBIN 29.9 pg (29.0-33.0); MEAN CORPUSCULAR HGB CONC 32.5 g/dl (32.0-37.0); MEAN PLATELET VOLUME 10.3 fl (7.4-10.4); MONOCYTE # 0.8 10^3/ul (0.3-0.9); MONOCYTES % 10.5 % (0.0-11.0); NEUTROPHIL # 4.5 10^3/ul (1.6-7.5); NEUTROPHILS % 63.7 % (39.0-77.0); PLATELET COUNT 312 10^3/UL (140-415); RED BLOOD COUNT 3.11 10^6/ul (4.20-5.40); RED CELL DISTRIBUTION WIDTH 14.8 % (11.5-14.5); WHITE BLOOD COUNT 7.1 10^3/ul (4.8-10.8)
[2016-12-22] MEDS: INSULIN ASPART [NOVOLOG] 3 ML PEN SC SCH ×4 (08:00→20:27)
[2016-12-22 08:10] LABS: CALCIUM 8.5 mg/dl (8.4-10.2); CREATININE 4.89 mg/dl (0.44-1.00); MAGNESIUM 2.1 mg/dl (1.7-2.5); PHOSPHORUS 6.5 mg/dl (2.5-4.9); POTASSIUM 4.5 mmol/L (3.5-5.1)
[2016-12-22] MEDS: ISONIAZID 300 MG TAB PO SCH (08:17)
[2016-12-22] MEDS: SEVELAMER 800 MG TAB PO SCH ×3 (08:17→18:05)
[2016-12-22] MEDS: ASPIRIN (EC) 81 MG TAB PO SCH (08:17)
[2016-12-22] MEDS: HEPARIN 5,000 UNIT/0.5 ML VIAL SC SCH ×2 (08:21→20:30)
[2016-12-22] MEDS: INSULIN GLARGINE [LANtus] 3 ML PEN SC SCH (08:23)
[2016-12-22] MEDS: LOSARTAN 50 MG TAB PO SCH ×2 (09:18→20:25)
[2016-12-22] MEDS: METOPROLOL (XL) 50 MG TAB PO SCH (09:18)
[2016-12-22] MEDS: AMLODIPINE 5 MG TAB PO SCH (09:18)
[2016-12-22] MEDS: hydrALAzine 20 MG INJ IV PRN ×2 (11:27→20:29)
--- NOTE | 2016-12-22 13:48 | PN ---
Date/Time of Note Date/Time of Note DATE: 12/22/16 TIME: 13:47 Assessment/Plan VTE Prophylaxis VTE Prophylaxis Intervention: heparin Lines/Catheters IV [facility] Saline Lock Urinary Cath still in place: No Assessment/Plan Chief Complaint/Hosp Course 1. Acute metabolic encephalopathy secondary to bacteremia from alpha hemolytic strep ID consultation appreciated plan is to repeat blood cultures Continue vancomycin Neurology consultation appreciated Follow-up on EEG 2. Hypertensive emergency-still elevated Increase Cozaar to 50 twice daily and start Norvasc 5 mg in a.m. Hydralazine as needed 3. End-stage renal disease, on dialysis Nephrology consultation appreciated ID evaluating for possible line sepsis 4. History of diabetes A1c normal at 5.7 Continue Lantus and NovoLog sliding scale Prophylaxis: Heparin Problems: Subjective 24 Hr Interval Summary Constitutional: disoriented Exam/Review of Systems Vital Signs Vitals Vital Signs Date Time Temp Pulse Resp B/P Pulse Ox O2 Delivery O2 Flow Rate FiO2 12/22/16 12:06 67 12/22/16 11:31 97.9 14 209/81 96 12/21/16 20:00 Nasal Cannula 2.0 Intake and Output 12/21/16 12/21/16 12/22/16 15:00 23:00 07:00 Intake Total 500 ml 550 ml 240 ml Output Total 4000 ml Balance -3500 ml 550 ml 240 ml Exam Psych: confusion Respiratory: clear to auscultation Cardiovascular: regular rate and rhythm Gastrointestinal: soft, No distended Musculoskeletal: nl extremities to inspection Results Result Diagram: 12/22/16 0615 12/22/16 0615 Results 24 hrs Laboratory Tests Test 12/21/16 17:08 12/21/16 21:11 12/22/16 06:15 12/22/16 07:49 Bedside Glucose 109 107 77 White Blood Count 7.1 Red Blood Count 3.11 L Hemoglobin 9.3 L Hematocrit 28.6 L Mean Corpuscular Volume 92.0 Mean Corpuscular Hemoglobin 29.9 Mean Corpuscular Hemoglobin Concent 32.5 Red Cell Distribution Width 14.8 H Platelet Count 312 Mean Platelet Volume 10.3 Neutrophils % 63.7 Lymphocytes % 21.6 Monocytes % 10.5 Eosinophils % 2.4 Basophils % 1.4 Nucleated Red Blood Cells % 0.0 Neutrophils # 4.5 Lymphocytes # 1.5 Monocytes # 0.8 Eosinophils # 0.2 Basophils # 0.1 Nucleated Red Blood Cells # 0.0 Sodium Level 133 L Potassium Level 4.5 Chloride Level 99 Carbon Dioxide Level 25 Anion Gap 14 Blood Urea Nitrogen 42 #H Creatinine 4.89 #H Glucose Level 67 #L Calcium Level 8.5 Phosphorus Level 6.5 H Magnesium Level 2.1 Test 12/22/16 12:12 Bedside Glucose 121 Medications Medications Current Medications Aspirin (Halfprin) 81 mg DAILY PO Last administered on 12/22/16 08:17; Admin Dose 81 MG; Start 12/20/16 at 09:00 Atorvastatin Calcium (Lipitor) 20 mg DAILY@21 PO Last administered on 21:15; Admin Dose 20 MG; Start 12/20/16 at 21:00 Hydralazine HCl (Apresoline) 10 mg Q8 PO Last administered on 12/22/16 13:01; Admin Dose 10 MG; Start 12/20/16 at 06:00 Isoniazid (Isoniazid) 300 mg DAILY PO Last administered on 12/22/16 08:17; Admin Dose 300 MG; Start 12/20/16 at 09:00 Metoprolol Succinate (Toprol Xl) 50 mg DAILY PO Last administered on 12/22/16 09:18; Admin Dose 50 MG; Start 12/20/16 at 09:00 Ondansetron HCl (Zofran Inj) 4 mg Q6H PRN IV NAUSEA AND/OR VOMITING Last administered on 12/20/16 13:02; Admin Dose 4 MG; Start 12/20/16 at 05:00 Acetaminophen (Tylenol Tab) 650 mg Q6H PRN PO PAIN AND OR ELEVATED TEMP Last administered on 12/20/16 21:18; Admin Dose 650 MG; Start 12/20/16 at 05:00 Heparin Sodium (Porcine) (Heparin (5000 Units/0.5 ml)) 5,000 unit BID SC Last administered on 12/22/16 08:21; Admin Dose 5,000 UNIT; Start 12/20/16 at 09:00 Insulin Glargine (Lantus) 10 unit DAILY@08 SC Last administered on 12/22/16 08 :23; Admin Dose 10 UNIT; Start 12/20/16 at 08:00 Diagnostic Test (Pha) (Accu-Chek) 1 ea 02 XX ; Start 12/21/16 at 02:00 Hydralazine HCl (Apresoline) 10 mg Q4H PRN IV ELEVATED BLOOD PRESSURE Last administered on 12/22/16 11:27; Admin Dose 10 MG; Start 12/20/16 at 05:00 Miscellaneous Information 1 ea NOTE XX ; Start 12/20/16 at 05:00 Glucose (Glutose) 15 gm Q15M PRN PO DECREASED GLUCOSE; Start 12/20/16 at 05:00 Glucose (Glutose) 22.5 gm Q15M PRN PO DECREASED GLUCOSE; Start 12/20/16 at 05: 00 Dextrose (D50w Syringe) 25 ml Q15M PRN IV DECREASED GLUCOSE; Start 12/20/16 at 05:00 Dextrose (D50w Syringe) 50 ml Q15M PRN IV DECREASED GLUCOSE; Start 12/20/16 at 05:00 Glucagon (Glucagen) 1 mg Q15M PRN IM DECREASED GLUCOSE; Start 12/20/16 at 05:00 Glucose (Glutose) 15 gm Q15M PRN BUCCAL DECREASED GLUCOSE; Start 12/20/16 at 05 :00 Labetalol HCl (Labetalol) 20 mg Q4H PRN IV SBP > 170 Last administered on 17:15; Admin Dose 20 MG; Start 12/20/16 at 17:00 Losartan Potassium (Cozaar) 50 mg BID PO Last administered on 12/22/16 09:18; Admin Dose 50 MG; Start 12/21/16 at 21:00 Amlodipine Besylate (Norvasc) 5 mg DAILY PO Last administered on 12/22/16 09: 18; Admin Dose 5 MG; Start 12/21/16 at 17:00 Miscellaneous Information (*Rx Drug Level Order Reminder*) RANDOM VANCOMYCIN LEVEL 5... ONCE ONCE XX ; Start 12/23/16 at 05:00; Stop 12/23/16 at 05:01 DANYEL HOROWITZ December 22, 2016 13:48
--- NOTE | 2016-12-22 18:13 | SP ---
DATE OF PROCEDURE: 12/21/2016 DATE OF EE12/21/2016 INDICATION: The patient is a 66-year-old lady with transient encephalopathy. DESCRIPTION OF PROCEDURE: Routine EEG was recorded digitally. Ililu-ip-vpxuz and ycmnf-bw-pta chiqui ages were recorded and reviewed. All impedances were measured and recorded. Cap electrodes were pl aced in accordance with International 10-20 system of electrode placement. FINDINGS: Symmetrically distributed background activity of medium amplitude ranging in frequency be tween 6-8 cycles per second, at times a little bit slower 4-6 cycles per second was seen throughout the recording. Eye opening attenuates the background. Photic stimulation produces normal driving. No definite epileptiform transients were seen. No signs of ongoing electrographic seizures or late ralized slowing. IMPRESSION: Mildly abnormal study secondary to mild background slowing, which could reflect presenc e of encephalopathy, finding is nonspecific, frequently seen in the context of toxic metabolic encep halopathy. Correlate clinically. Dictated By: YIN LOPEZ/FLETCHER Conf#: [id number] DID#: [id number]
[2016-12-22] MEDS: ONDANSETRON 4 MG INJ IV PRN (18:19)
--- NOTE | 2016-12-22 20:13 | CONS ---
Date/Time of Note Date/Time of Note DATE: 12/22/16 TIME: 20:11 Assessment/Plan Assessment/Plan Chief Complaint/Hosp Course ID PROGRESS NOTE ABX: Vanco IV 24H INTERVAL SUMMARY * Awake, alert, no complaints offered, feels well, denies fevers * Organism 1 ALPHA HEMOLYTIC STREP SPP . VIRIDANS GROUP PHYSICAL EXAMINATION: GENERAL: Awake, alert, NAD HEENT: Unremarkable -- NECK: Supple, trachea midline. CHEST: Rise symmetrical without dyspnea ABDOMEN: Soft EXTREMITIES: Moves all extremities, Without cyanosis. ID ASSESSMENT: 66 yo F admit with: 1. Encephalopathy in setting HTN urgency 2. Alpha strep bacteremia - Line sepsis ? 3. ESRD -> HD dependent INVASIVES: HD ALLERGY: PENICILLIN. CURRENT ABX: ABX: Vanco IV ID PLAN: * Continue Vanco IV * Repeat BCx -> consider change HD access * Anticipate minimum 14 days Vanco to be given @ HD center post HD to cover concern bacteremia. . Problems: Consultation Date/Type/Reason Admit Date/Time December 20, 2016 at 01:14 Initial Consult Date Exam/Review of Systems Vital Signs Vitals Vital Signs Date Time Temp Pulse Resp B/P Pulse Ox O2 Delivery O2 Flow Rate FiO2 12/22/16 20:00 68 12/22/16 16:00 98.1 16 177/77 96 12/22/16 07:58 Nasal Cannula 2.0 Intake and Output 12/21/16 12/21/16 12/22/16 15:00 23:00 07:00 Intake Total 500 ml 550 ml 240 ml Output Total 4000 ml Balance -3500 ml 550 ml 240 ml Results Result Diagram: 12/22/16 0615 12/22/16 0615 Results 24 hrs Laboratory Tests Test 12/21/16 21:11 12/22/16 06:15 12/22/16 07:49 12/22/16 12:12 Bedside Glucose 107 77 121 White Blood Count 7.1 Red Blood Count 3.11 L Hemoglobin 9.3 L Hematocrit 28.6 L Mean Corpuscular Volume 92.0 Mean Corpuscular Hemoglobin 29.9 Mean Corpuscular Hemoglobin Concent 32.5 Red Cell Distribution Width 14.8 H Platelet Count 312 Mean Platelet Volume 10.3 Neutrophils % 63.7 Lymphocytes % 21.6 Monocytes % 10.5 Eosinophils % 2.4 Basophils % 1.4 Nucleated Red Blood Cells % 0.0 Neutrophils # 4.5 Lymphocytes # 1.5 Monocytes # 0.8 Eosinophils # 0.2 Basophils # 0.1 Nucleated Red Blood Cells # 0.0 Sodium Level 133 L Potassium Level 4.5 Chloride Level 99 Carbon Dioxide Level 25 Anion Gap 14 Blood Urea Nitrogen 42 #H Creatinine 4.89 #H Glucose Level 67 #L Calcium Level 8.5 Phosphorus Level 6.5 H Magnesium Level 2.1 Test 12/22/16 18:27 Bedside Glucose 107 Medications Medications Current Medications Aspirin (Halfprin) 81 mg DAILY PO Last administered on 12/22/16 08:17; Admin Dose 81 MG; Start 12/20/16 at 09:00 Atorvastatin Calcium (Lipitor) 20 mg DAILY@21 PO Last administered on 21:15; Admin Dose 20 MG; Start 12/20/16 at 21:00 Hydralazine HCl (Apresoline) 10 mg Q8 PO Last administered on 12/22/16 13:01; Admin Dose 10 MG; Start 12/20/16 at 06:00 Isoniazid (Isoniazid) 300 mg DAILY PO Last administered on 12/22/16 08:17; Admin Dose 300 MG; Start 12/20/16 at 09:00 Metoprolol Succinate (Toprol Xl) 50 mg DAILY PO Last administered on 12/22/16 09:18; Admin Dose 50 MG; Start 12/20/16 at 09:00 Ondansetron HCl (Zofran Inj) 4 mg Q6H PRN IV NAUSEA AND/OR VOMITING Last administered on 12/22/16 18:19; Admin Dose 4 MG; Start 12/20/16 at 05:00 Acetaminophen (Tylenol Tab) 650 mg Q6H PRN PO PAIN AND OR ELEVATED TEMP Last administered on 12/20/16 21:18; Admin Dose 650 MG; Start 12/20/16 at 05:00 Heparin Sodium (Porcine) (Heparin (5000 Units/0.5 ml)) 5,000 unit BID SC Last administered on 12/22/16 08:21; Admin Dose 5,000 UNIT; Start 12/20/16 at 09:00 Insulin Glargine (Lantus) 10 unit DAILY@08 SC Last administered on 12/22/16 08 :23; Admin Dose 10 UNIT; Start 12/20/16 at 08:00 Diagnostic Test (Pha) (Accu-Chek) 1 ea 02 XX ; Start 12/21/16 at 02:00 Hydralazine HCl (Apresoline) 10 mg Q4H PRN IV ELEVATED BLOOD PRESSURE Last administered on 12/22/16 11:27; Admin Dose 10 MG; Start 12/20/16 at 05:00 Miscellaneous Information 1 ea NOTE XX ; Start 12/20/16 at 05:00 Glucose (Glutose) 15 gm Q15M PRN PO DECREASED GLUCOSE; Start 12/20/16 at 05:00 Glucose (Glutose) 22.5 gm Q15M PRN PO DECREASED GLUCOSE; Start 12/20/16 at 05: 00 Dextrose (D50w Syringe) 25 ml Q15M PRN IV DECREASED GLUCOSE; Start 12/20/16 at 05:00 Dextrose (D50w Syringe) 50 ml Q15M PRN IV DECREASED GLUCOSE; Start 12/20/16 at 05:00 Glucagon (Glucagen) 1 mg Q15M PRN IM DECREASED GLUCOSE; Start 12/20/16 at 05:00 Glucose (Glutose) 15 gm Q15M PRN BUCCAL DECREASED GLUCOSE; Start 12/20/16 at 05 :00 Labetalol HCl (Labetalol) 20 mg Q4H PRN IV SBP > 170 Last administered on 17:15; Admin Dose 20 MG; Start 12/20/16 at 17:00 Losartan Potassium (Cozaar) 50 mg BID PO Last administered on 12/22/16 09:18; Admin Dose 50 MG; Start 12/21/16 at 21:00 Amlodipine Besylate (Norvasc) 5 mg DAILY PO Last administered on 12/22/16 09: 18; Admin Dose 5 MG; Start 12/21/16 at 17:00 Miscellaneous Information (*Rx Drug Level Order Reminder*) RANDOM VANCOMYCIN LEVEL 5... ONCE ONCE XX ; Start 12/23/16 at 05:00; Stop 12/23/16 at 05:01 ISAURO PHELPS NP December 22, 2016 20:13
[2016-12-22] MEDS: ATORVASTATIN 20 MG TAB PO SCH (20:22)
[2016-12-23] VITALS (7 sets, daily range): BP systolic 174–207; BP diastolic 77–85; PULSE 65–69; RESP 18–19
[2016-12-23] MEDS: ACCU-CHEK XX SCH (02:00)
[2016-12-23] MEDS: hydrALAzine 20 MG INJ IV PRN (06:12)
[2016-12-23 06:34] LABS: POTASSIUM 4.6 mmol/L (3.5-5.1)
[2016-12-23 06:36] LABS: CREATININE 4.23 mg/dl (0.44-1.00)
[2016-12-23 06:38] LABS: CALCIUM 8.7 mg/dl (8.4-10.2); MAGNESIUM 2.1 mg/dl (1.7-2.5); PHOSPHORUS 5.3 mg/dl (2.5-4.9)
[2016-12-23] MEDS: SEVELAMER 800 MG TAB PO SCH (07:19)
[2016-12-23] MEDS: ACETAMINOPHEN 325 MG TAB PO PRN (07:19)
[2016-12-23] MEDS: INSULIN ASPART [NOVOLOG] 3 ML PEN SC SCH (07:22)
[2016-12-23] MEDS: INSULIN GLARGINE [LANtus] 3 ML PEN SC SCH (07:22)
[2016-12-23] MEDS: LOSARTAN 50 MG TAB PO SCH (08:17)
[2016-12-23] MEDS: ISONIAZID 300 MG TAB PO SCH (08:17)
[2016-12-23] MEDS: AMLODIPINE 5 MG TAB PO SCH (08:17)
[2016-12-23] MEDS: ASPIRIN (EC) 81 MG TAB PO SCH (08:17)
[2016-12-23] MEDS: HEPARIN 5,000 UNIT/0.5 ML VIAL SC SCH (08:18)
[2016-12-23] MEDS: METOPROLOL (XL) 50 MG TAB PO SCH (08:18)
[2016-12-23] MEDS ORDERED: VANCOMYCIN 750 MG in SOD CHLORIDE 0.9% 150 ML IVPB SCH (12:00)
--- NOTE | 2016-12-23 12:31 | PN ---
DATE: 12/23/2016 SUBJECTIVE: The patient is stable, had hemodialysis yesterday, tolerated it well with 3 L removed. No other events noted. No hemoptysis, hematemesis, hematochezia. OBJECTIVE: VITAL SIGNS: Blood pressure 185/80, respirations 18, pulse 69, temperature 98.3. HEENT: Head is normocephalic. NECK: Supple. HEART: Regular rate. LUNGS: Show diminished breath sounds at the base. ABDOMEN: Soft, nontender to palpation, no rebound or guarding. EXTREMITIES: Negative for clubbing, cyanosis, edema. DERMATOLOGIC: No rashes. MUSCULOSKELETAL: No joint effusions. NEUROLOGIC: No change in exam. MEDICATIONS: The patient's medications have been reviewed. LABORATORY DATA: Shows a sodium 136, potassium 4.6, chloride 102, BUN 31, creatinine 4.23. White c ount 7.1, hemoglobin 9.3, hematocrit of 28.6, platelet count is 312. ASSESSMENT AND PLAN: 1. End-stage renal disease. The patient was dialyzed yesterday, tolerated t well. Plan for dialys is tomorrow for 3 hours, 3K bath, calcium 2.5. 2. Hypokalemia secondary to end-stage renal disease, improved. Continue dialysis, low potassium ba th. 3. Anemia of chronic disease. Monitor hemoglobin and hematocrit levels. We will give Epogen as ne eded. 4. Mineral bone disorder. Continue to monitor calcium and phosphorus levels. Continue phosphate b inders. 5. Hypertensive urgency. Etiology is multifactorial, in part due to increased intravascular volume . Continue current blood pressure regimen, adjust as needed. Continue ultrafiltration with dialysi s. 6. Sepsis with bacteremia. The patient is currently on antibiotics. Repeat cultures have been neg ative to date. We will discuss with infectious disease if the patient's PermCath needs to be remove d. 7. Acute encephalopathy, etiology toxic metabolic, mental status improved. Continue to monitor. 8. Diabetes. Continue Accu-Cheks and insulin sliding scale. 9. Gastrointestinal and deep venous thrombosis prophylaxis. Continue proton pump inhibitor and hep floyd. Dictated By: WILLOW NORRIS DO NR/NTS Conf#: [id number] DID#: [id number]
--- NOTE | 2016-12-23 20:20 | DS ---
DATE OF ADMISSION: 12/20/2016 DATE OF DISCHARGE: 12/23/2016 Of note, the patient left AMA. DISCHARGE DIAGNOSES: 1. Acute metabolic encephalopathy secondary to bacteremia from alpha-hemolytic strep, possibly from dialysis line infection. The patient, once again, left against medical advice. 2. Hypertensive emergency. The patient's blood pressure was still elevated on day of discharge. S he understood the risks of leaving against medical advice. 3. End-stage renal disease on dialysis. The patient did receive dialysis during the hospitalizatio n. 4. History of diabetes. A1c is now normal at 5.7. HOSPITAL COURSE: The patient is a 66-year-old female with history of end-stage renal disease, hyper tension, possible diabetes. The patient comes in with altered mental status. The cause of the acut e encephalopathy was possibly secondary to sepsis. The patient did have alpha-hemolytic strep in 2 out of 2 blood cultures. Repeat cultures after 1 day were negative. The patient was felt to possib ly have line sepsis, but once again, repeat cultures were negative after 1 day. The patient was brijesh ng seen by Nephrology as well as by ID. Of note, the patient did have an EEG that showed a mildly a bnormal study secondary to background slowing which could represent encephalopathy. Finding was non specific. This finding could be seen in the context of toxic metabolic encephalopathy. The patient 's BP was elevated. Her medications were being attempted to be adjusted. Her BP continued to be el evated. The patient wanted to go against medical advice. She understood the risks of leaving but w anted to leave anyway. CONDITION ON DISCHARGE: Fair. The patient left AMA. DISPOSITION: No disposition instruction were given. MEDICATIONS: No medication instructions were given. FOLLOWUP: No followup instructions were given. Dictated By: DANYEL HOROWITZ MD BS/NTS Conf#: [id number] DID#: [id number]
--- NOTE | 2016-12-25 09:04 | PN ---
DATE: 12/22/2016 SUBJECTIVE: The patient had urgent hemodialysis yesterday due to severe hyperkalemia. The patient' s dialysis was complicated and required me speaking with the dialysis nurse, altering blood flows. No other events noted. OBJECTIVE: VITAL SIGNS: Currently blood pressure is 188/79, respirations 16, pulse 68, temperature 98.6. HEENT: Head is normocephalic. NECK: Supple. HEART: Regular rate. LUNGS: Show diminished breath sounds at the base. ABDOMEN: Soft, nontender to palpation without rebound or guarding. EXTREMITIES: Negative for clubbing, cyanosis. No edema. DERMATOLOGIC: No rashes. MUSCULOSKELETAL: No joint effusions. NEUROLOGIC: No change in exam. MEDICATIONS: The patient's medications have been reviewed. LABORATORY DATA: Shows sodium 133, potassium 4.5, chloride 99, BUN 42, creatinine 4.89. White coun t 7.1, hemoglobin 9.3, hematocrit 28.6, platelet count is 312, patient's blood cultures have been po sitive. ASSESSMENT AND PLAN: 1. End-stage renal disease. The patient was dialyzed yesterday, tolerated well. The patient will be dialyzed again today for 3 hours on a 2K bath, calcium 2.5, will ultrafiltrate as tolerated. 2. Hyperkalemia. Continue dialysis a low potassium bath. Continue renal diet. 3. Anemia of chronic disease. Continue to monitor hemoglobin and hematocrit levels. Continue Epog en. 4. Mineral bone disorder. Continue to monitor calcium and phosphorus levels. Continue phos binder s. 5. Hypertensive urgency in part due to increased intravascular volume. Continue ultrafiltration di alysis. 6. Sepsis secondary to pneumonia with bacteremia with alpha hemolytic strep. Etiology may be tony rning for a line infection. The patient is currently on antibiotics. Repeat cultures are pending. Will discuss with infectious disease if the patient's Perm-A-Cath needs to be removed. 7. Acute encephalopathy, etiology is toxic metabolic. Mental status improving. 8. Diabetes, continue Accu-Cheks and sliding scale. 9. Gastrointestinal and deep venous thrombosis prophylaxis. Continue proton pump inhibitor and hep floyd. Dictated By: WILLOW IVERSON/NTS Conf#: [id number] DID#: [id number]
== END 2016-12-23 10:30 | disposition left against medical advice (07) | DRG 314 ==
LOC: E/R 21:56 → MS4 12-20 01:14
PROVIDERS: ADMIT Internal Medicine; ATTEND Internal Medicine
PROC: 5A1D60Z (ICD-10-PCS; principal; 2016-12-20)
PROC: 4A00X4Z Measurement of Central Nervous Electrical Activity, External Approach (ICD-10-PCS; 2016-12-21)
DX: T80.211A Bloodstream infection due to central venous catheter, initial encounter (principal); A40.8 Other streptococcal sepsis; G92 Toxic encephalopathy; J18.9 Pneumonia, unspecified organism; N18.6 End stage renal disease; I12.0 Hypertensive chronic kidney disease with stage 5 chronic kidney disease or end stage renal disease; E11.22 Type 2 diabetes mellitus with diabetic chronic kidney disease; I16.1 Hypertensive emergency; I16.0 Hypertensive urgency; D63.8 Anemia in other chronic diseases classified elsewhere; E87.5 Hyperkalemia; Z99.2 Dependence on renal dialysis; Z79.82 Long term (current) use of aspirin; Z79.84 Long term (current) use of oral hypoglycemic drugs; Z88.2 Allergy status to sulfonamides; Y84.8 Other medical procedures as the cause of abnormal reaction of the patient, or of later complication, without mention of misadventure at the time of the procedure
CPT/HCPCS: 36415; 70450; 71010; 80048; 80053; 80061; 80202; 82962; 83036; 83735; 84100; 84443; 84484; 85025; 85610; 85730; 87040; 90935; 93005; 95819; 96374; 96375; J0360; J0456; J0696; J1644; J1815; J2405; J3370; Q4081